=== PATIENT | male | born 1990 | race Caucasian/White ===

== ENCOUNTER 2018-09-29 10:57 | Outpatient (CLI) | payer MEDICAID ==
[2018-09-29 12:02] LABS: Hematocrit 39.4 % (35.5-45.6); Hemoglobin 13.4 gm/dl (11.8-15.2); Mean Corpuscular HGB Conc 34 % (32-34); Mean Corpuscular Volume 94 fl (84-94); Platelet Count 190 K/mm3 (140-440); Red Cell Distribution Width 12.8 % (13.2-15.2)
[2018-09-29 12:25] LABS: Alanine Aminotransferase 11 units/L (7-56); Albumin 4.5 g/dL (3.9-5); BUN/Creatinine Ratio 26; Blood Urea Nitrogen 13 mg/dL (9-20); Calcium 8.8 mg/dL (8.4-10.2); Chol/HDL Ratio 2.13 %; HDL Cholesterol 75 mg/dL (40-59); Hemolysis Index 6; LDL Cholesterol,Direct 81 mg/dL (50-130)
[2018-10-03 13:27] LABS: Vitamin D, 25-OH, D2 <4 ng/mL
== END 2018-09-29 10:58 | disposition home or self-care (01) ==
LOC: LAB 10:57
PROVIDERS: ATTEND Internal Medicine
DX: Z13.220 Encounter for screening for lipoid disorders (principal); Z13.21 Encounter for screening for nutritional disorder; Z13.1 Encounter for screening for diabetes mellitus
CPT/HCPCS: 36415; 80053; 80061; 82306; 82607; 83036; 84443; 85027